=== PATIENT | male | born 1960 | race Caucasian/White ===

== ENCOUNTER 2019-12-13 11:15 | Observation (INO) ==
[2019-12-13 12:10] LABS: Hematocrit 52.1 % (37.5-50.1); Hemoglobin 17.2 g/dL (12.9-16.9); Mean Corpuscular Hemoglobin 31.4 pg (28.0-33.3); Mean Corpuscular Volume 95.1 fL (83.0-100.0); Mean Platelet Volume 10.3 fL (9.4-12.4); Platelet Count 344 K/mcL (140-400); Red Blood Count 5.48 M/mcL (4.19-5.50); Red Cell Distribution Width 13.1 % (11.5-14.5); White Blood Count 7.9 K/mcL (4.3-11.1)
[2019-12-13 12:13] LABS: INR 1.1
[2019-12-13 12:16] LABS: Activated Partial Thrombo Time 41.5 Seconds (26.0-36.0)
[2019-12-13 12:31] LABS: BUN/Creatinine Ratio 14 (6-26); Blood Urea Nitrogen 12 mg/dL (8-23); Calcium 10.5 mg/dL (8.6-10.3); Carbon Dioxide 24 mEq/L (23-29); Chloride 104 mEq/L (98-107); Glucose 107 mg/dL (70-105); Osmolality,Calculated 284 (280-300); Potassium 4.3 mEq/L (3.5-5.1); Sodium 137 mEq/L (136-145); eGFR For African Americans > 60 (> 60); eGFR For Non-African Americans > 60 (> 60)
[2019-12-13 12:32] LABS: Troponin I < 0.03 ng/mL (< 0.04)
[2019-12-13 12:49] LABS: Bilirubin,Urine Negative (Negative); Blood,Urine Negative (Negative); Clarity,Urine Clear (Clear); Color,Urine Yellow (Yellow); Glucose,Urine (UA) Normal (Normal); Ketones,Urine 15 mg/dL (Negative); Leukocyte Esterase,Urine Negative (Negative); Nitrite,Urine Negative (Negative); PH,Urine 7.5 pH Units (5.0-8.0); Protein,Urine 30 mg/dL (Neg-Trace); Specific Gravity,Urine 1.023 (1.010-1.025); Urobilinogen,Urine Normal (Normal)
[2019-12-13 12:53] LABS: Bacteria,Urine None Seen per hpf (None-Few); Hyaline Casts,Urine None Seen per lpf (None-Few); RBC,Urine 0-3 per hpf (0-3); Squamous Epithelial Cell,Urine Few per lpf (None-Few); WBC,Urine 0-3 per hpf (0-3)
[2019-12-13] MEDS ORDERED: Naloxone 0.4 MG/ML INJ IVP PRN (12:57)
[2019-12-13] MEDS ORDERED: Ondansetron 4 MG/2 ML VIAL IVP PRN (12:57)
[2019-12-13 13:09] LABS: Amphetamine Screen,Urine Negative ng/mL (Cutoff=1000); Barbiturate Screen,Urine Negative ng/mL (Cutoff=200); Benzodiazepines Screen,Urine Negative ng/mL (Cutoff=200); Cannabinoid Screen,Urine Positive ng/mL (Cutoff = 50); Cocaine Screen,Urine Negative ng/mL (Cutoff= 300); Opiate Screen,Urine Negative ng/mL (Cutoff=300); Phencyclidine Screen,Urine Negative ng/mL (Cutoff=25)
[2019-12-13] MEDS ORDERED: Aspirin 325 MG TABLET PO ONE (13:26)
[2019-12-13] MEDS ORDERED: 0.9 % Sodium Chloride 1,000 ML IVC SCH (13:30)
[2019-12-13] MEDS ORDERED: Acetaminophen 325 MG TABLET PO PRN (14:43)
[2019-12-13] MEDS ORDERED: Acetaminophen/Butalbital/CaffeineTABLET PO ONE (14:55)
[2019-12-13] MEDS: Nicotine 21 MG PATCH.TD24 TD SCH (17:01)
[2019-12-13] MEDS: Budesonide/Formoterol 160/4.5 1 PUFF INH IH SCH (22:09)
[2019-12-14 06:44] LABS: Basophils # 0.1 K/mcL (0.0-0.2); Basophils % 0.9 %; Eosinophils # 0.3 K/mcL (0.0-0.6); Eosinophils % 3.2 %; Hematocrit 45.8 % (37.5-50.1); Immature Granulocytes % 0.1 % (0-4); Lymphocytes # 1.8 K/mcL (0.6-4.6); Lymphocytes % 22.6 %; Mean Corpuscular HGB Conc 33.6 g/dL (31.6-35.5); Mean Corpuscular Hemoglobin 32.2 pg (28.0-33.3); Mean Corpuscular Volume 95.8 fL (83.0-100.0); Mean Platelet Volume 9.8 fL (9.4-12.4); Monocytes # 0.8 K/mcL (0.0-1.3); Monocytes % 9.8 %; Neutrophils # 5.1 K/mcL (1.6-8.9); Platelet Count 296 K/mcL (140-400); Red Blood Count 4.78 M/mcL (4.19-5.50); Red Cell Distribution Width 13.1 % (11.5-14.5); Segmented Neutrophils % 63.4 %; White Blood Count 8.1 K/mcL (4.3-11.1)
[2019-12-14 06:47] LABS: Hemoglobin 15.4 g/dL (12.9-16.9)
[2019-12-14 06:48] LABS: Estimated Average Glucose 123 mg/dl
[2019-12-14 07:07] LABS: BUN/Creatinine Ratio 15 (6-26); Blood Urea Nitrogen 12 mg/dL (8-23); Calcium 9.2 mg/dL (8.6-10.3); Carbon Dioxide 23 mEq/L (23-29); Chloride 106 mEq/L (98-107); Chol/HDL Ratio 4.8 (0-4.9); Cholesterol 153 mg/dL (< 200); Glucose 97 mg/dL (70-105); HDL Cholesterol 32 mg/dL (40-59); LDL Cholesterol,Calculated 103 mg/dL (0-99); Osmolality,Calculated 282 (280-300); Potassium 3.9 mEq/L (3.5-5.1); Sodium 136 mEq/L (136-145); Triglycerides 92 mg/dL (< 150); eGFR For African Americans > 60 (> 60); eGFR For Non-African Americans > 60 (> 60)
[2019-12-14] MEDS: Budesonide/Formoterol 160/4.5 1 PUFF INH IH SCH ×2 (09:47→20:02)
[2019-12-14] MEDS: Tiotropium 18 MCG inhalation IH SCH (09:48)
[2019-12-14] MEDS: Aspirin Enteric Coated 81 MG Tablet PO SCH (10:03)
[2019-12-14] MEDS: Nicotine 21 MG PATCH.TD24 TD SCH (10:04)
[2019-12-14] MEDS ORDERED: Isovue-370 500 ML BOTTLE IVP ONE (11:58)
[2019-12-15 07:15] VITALS: BP 120/77
[2019-12-15] MEDS: Budesonide/Formoterol 160/4.5 1 PUFF INH IH SCH (07:39)
[2019-12-15] MEDS: Tiotropium 18 MCG inhalation IH SCH (07:39)
[2019-12-15] MEDS: Nicotine 21 MG PATCH.TD24 TD SCH (07:59)
[2019-12-15] MEDS: Aspirin Enteric Coated 81 MG Tablet PO SCH (07:59)
== END 2019-12-15 11:09 | disposition home or self-care (01) ==
LOC: 3BNU 11:15 → EMEROOARM 11:15 → SUATTDRO 13:08 → 3BNU 13:40
PROVIDERS: ADMIT Internal Medicine; ATTEND Student in an Organized Health Care Education/Training Program

== ENCOUNTER 2020-10-24 19:39 | Observation (INO) ==
[2020-10-24] MEDS ORDERED: Isovue-370 500 ML BOTTLE IVP ONE (20:05)
[2020-10-24] MEDS ORDERED: Ipratropium/Albuterol Neb 3 ML IH ONE (20:06)
[2020-10-24] MEDS ORDERED: Morphine Sulfate 2 MG/ML SYRINGE IVP ONE (20:13)
[2020-10-24 20:15] LABS: Basophils # 0.1 K/mcL (0.0-0.2); Basophils % 0.7 %; Eosinophils # 0.2 K/mcL (0.0-0.6); Eosinophils % 1.9 %; Hematocrit 47.2 % (37.5-50.1); Hemoglobin 15.7 g/dL (12.9-16.9); Immature Granulocytes % 0.3 % (0-4); Lymphocytes # 1.9 K/mcL (0.6-4.6); Lymphocytes % 15.9 %; Mean Corpuscular HGB Conc 33.3 g/dL (31.6-35.5); Mean Corpuscular Hemoglobin 32.4 pg (28.0-33.3); Mean Corpuscular Volume 97.3 fL (83.0-100.0); Mean Platelet Volume 9.2 fL (9.4-12.4); Monocytes # 1.7 K/mcL (0.0-1.3); Neutrophils # 7.9 K/mcL (1.6-8.9); Platelet Count 324 K/mcL (140-400); Red Blood Count 4.85 M/mcL (4.19-5.50); Red Cell Distribution Width 12.5 % (11.5-14.5); Segmented Neutrophils % 67.2 %; White Blood Count 11.8 K/mcL (4.3-11.1)
[2020-10-24] MEDS ORDERED: Ondansetron 4 MG/2 ML VIAL IVP ONE (20:17)
[2020-10-24] MEDS ORDERED: cefTRIAXone 1,000 MG in Water for inj. (sterile) 10 ML IVP ONE (20:22)
[2020-10-24] MEDS ORDERED: Azithromycin 500 MG in 0.9 % Sodium Chloride 250 ML IVPB ONE (20:22)
[2020-10-24 20:37] LABS: Alanine Aminotransferase 20 Units/L (7-52); Albumin 4.5 g/dL (3.5-5.7); Albumin/Globulin Ratio 1.4 (1.1-2.2); Alkaline Phosphatase 119 Units/L (34-104); Aspartate Amino Transferase 17 Units/L (13-39); BUN/Creatinine Ratio 9 (6-26); Bilirubin,Total 0.7 mg/dL (0.3-1.0); Blood Urea Nitrogen 9 mg/dL (8-23); Calcium 10.1 mg/dL (8.6-10.3); Carbon Dioxide 21 mEq/L (23-29); Chloride 101 mEq/L (98-107); Globulin 3.2 g/dL (2.4-3.5); Glucose 145 mg/dL (70-105); Osmolality,Calculated 285 (280-300); Potassium 3.8 mEq/L (3.5-5.1); Sodium 137 mEq/L (136-145); Total Protein 7.7 g/dL (6.4-8.9); Troponin I < 0.03 ng/mL (< 0.04); eGFR For African Americans > 60 (> 60); eGFR For Non-African Americans > 60 (> 60)
[2020-10-24] MEDS ORDERED: methylPREDNISolone 125 MG/2 ML VIAL IVP ONE (20:48)
[2020-10-24] MEDS ORDERED: 0.9 % Sodium Chloride 1,000 ML IVC ONE (21:02)
[2020-10-24] MEDS ORDERED: Albuterol 2.5 MG/3 ML NEBULIZER IH PRN (22:42)
[2020-10-24] MEDS ORDERED: Nicotine 21 MG PATCH.TD24 TD SCH (22:45)
[2020-10-24] MEDS ORDERED: Ondansetron 4 MG/2 ML VIAL IVP PRN (22:46)
[2020-10-24] MEDS ORDERED: Naloxone 0.4 MG/ML INJ IVP PRN (22:46)
[2020-10-24] MEDS: Ibuprofen 400 MG TABLET PO PRN (23:42)
[2020-10-25 00:21] LABS: Basophils % 0.2 %; Eosinophils % 0.1 %; Hemoglobin 14.3 g/dL (12.9-16.9); Immature Granulocytes % 0.3 % (0-4); Lymphocytes # 0.3 K/mcL (0.6-4.6); Mean Corpuscular HGB Conc 33.3 g/dL (31.6-35.5); Mean Corpuscular Hemoglobin 32.6 pg (28.0-33.3); Mean Corpuscular Volume 97.9 fL (83.0-100.0); Mean Platelet Volume 9.1 fL (9.4-12.4); Monocytes # 0.2 K/mcL (0.0-1.3); Monocytes % 1.9 %; Neutrophils # 8.9 K/mcL (1.6-8.9); Platelet Count 260 K/mcL (140-400); Red Blood Count 4.39 M/mcL (4.19-5.50); Red Cell Distribution Width 12.4 % (11.5-14.5); Segmented Neutrophils % 94.5 %; White Blood Count 9.4 K/mcL (4.3-11.1)
[2020-10-25 00:40] LABS: Alanine Aminotransferase 17 Units/L (7-52); Albumin 4.1 g/dL (3.5-5.7); Albumin/Globulin Ratio 1.4 (1.1-2.2); Alkaline Phosphatase 97 Units/L (34-104); Aspartate Amino Transferase 15 Units/L (13-39); BUN/Creatinine Ratio 13 (6-26); Bilirubin,Total 0.5 mg/dL (0.3-1.0); Blood Urea Nitrogen 9 mg/dL (8-23); Calcium 9.2 mg/dL (8.6-10.3); Carbon Dioxide 21 mEq/L (23-29); Chloride 103 mEq/L (98-107); Globulin 2.9 g/dL (2.4-3.5); Glucose 134 mg/dL (70-105); Osmolality,Calculated 283 (280-300); Potassium 4.1 mEq/L (3.5-5.1); Sodium 136 mEq/L (136-145); eGFR For African Americans > 60 (> 60); eGFR For Non-African Americans > 60 (> 60)
[2020-10-25 00:47] LABS: Bilirubin,Urine Negative (Negative); Blood,Urine Trace (Negative); Clarity,Urine Clear (Clear); Color,Urine Colorless (Yellow); Glucose,Urine (UA) Normal (Normal); Ketones,Urine 40 mg/dL (Negative); Leukocyte Esterase,Urine Negative (Negative); Mucus,Urine Few per lpf (None-Few); Nitrite,Urine Negative (Negative); PH,Urine 6.5 pH Units (5.0-8.0); Protein,Urine 30 mg/dL (Neg-Trace); RBC,Urine 0-3 per hpf (0-3); Specific Gravity,Urine > 1.030 (1.010-1.025); Squamous Epithelial Cell,Urine Few per hpf (None-Few); Urobilinogen,Urine Normal (Normal); WBC,Urine 0-3 per hpf (0-3)
[2020-10-25 01:20] LABS: Influenza A PCR Negative (Negative); Influenza B PCR Negative (Negative); Resp. Syncytial Virus PCR Negative (Negative)
[2020-10-25 01:21] LABS: SARS-CoV-2 by PCR (In House) Negative (Negative)
[2020-10-25] MEDS ORDERED: *HR* OxyCODONE Immed Rel 5 MG TABLET PO PRN (01:42)
[2020-10-25] MEDS ORDERED: *HR* HYDROcodone/Acet 5/325 mg TABLET PO PRN (01:42)
[2020-10-25] MEDS ORDERED: predniSONE 20 MG TABLET PO SCH (09:00)
[2020-10-25] MEDS ORDERED: Aspirin Enteric Coated 81 MG Tablet PO SCH (09:00)
[2020-10-25] MEDS ORDERED: Azithromycin 250 MG TABLET PO SCH (09:00)
[2020-10-25 10:44] VITALS: BP 113/67
[2020-10-25] MEDS: Ibuprofen 400 MG TABLET PO PRN (13:58)
== END 2020-10-25 14:09 | disposition home or self-care (01) ==
LOC: 3BNU 19:39 → EMEROOARM 19:39 → SUATTDRO 22:36 → 3BNU 23:01
PROVIDERS: ADMIT Internal Medicine; ATTEND General Practice

== ENCOUNTER 2021-09-25 20:44 | Inpatient (IN) ==
[2021-09-25] MEDS ORDERED: Ipratropium/Albuterol Neb 3 ML IH ONE (20:54)
[2021-09-25] MEDS ORDERED: methylPREDNISolone 125 MG/2 ML VIAL IVP ONE (20:57)
[2021-09-25 21:19] LABS: Basophils % 0.3 %; Eosinophils # 0.1 K/mcL (0.0-0.6); Eosinophils % 1.5 %; Hematocrit 44.6 % (37.5-50.1); Hemoglobin 14.3 g/dL (12.9-16.9); Immature Granulocytes % 1.5 % (0-4); Lymphocytes % 10.6 %; Mean Corpuscular HGB Conc 32.1 g/dL (31.6-35.5); Mean Corpuscular Hemoglobin 32.8 pg (28.0-33.3); Mean Corpuscular Volume 102.3 fL (83.0-100.0); Monocytes # 0.7 K/mcL (0.0-1.3); Monocytes % 7.6 %; Neutrophils # 7.5 K/mcL (1.6-8.9); Platelet Count 213 K/mcL (140-400); Red Blood Count 4.36 M/mcL (4.19-5.50); Red Cell Distribution Width 18.9 % (11.5-14.5); Segmented Neutrophils % 78.5 %; White Blood Count 9.6 K/mcL (4.3-11.1)
[2021-09-25 21:22] LABS: VBG HCO3 35 mEq/L (21-27); VBG PCO2 67 mmHg (41-51); VBG PH 7.33 pH Units (7.32-7.42); VBG PO2 36 mmHg (25-50)
[2021-09-25 21:26] LABS: INR 1.1; Prothrombin Time 11.8 Seconds (9.4-12.1)
[2021-09-25 21:29] LABS: Activated Partial Thrombo Time 34.6 Seconds (26.0-36.0)
[2021-09-25 21:36] LABS: Alanine Aminotransferase 41 Units/L (7-52); Albumin 3.4 g/dL (3.5-5.7); Albumin/Globulin Ratio 1.3 (1.1-2.2); Alkaline Phosphatase 125 Units/L (34-104); Aspartate Amino Transferase 20 Units/L (13-39); BUN/Creatinine Ratio 23 (6-26); Bilirubin,Direct 0.1 mg/dL (0.0-0.2); Bilirubin,Indirect 0.5 mg/dL (0.0-1.0); Bilirubin,Total 0.6 mg/dL (0.3-1.0); Blood Urea Nitrogen 15 mg/dL (8-23); Calcium 8.7 mg/dL (8.6-10.3); Carbon Dioxide 32 mEq/L (23-29); Chloride 94 mEq/L (98-107); Globulin 2.6 g/dL (2.4-3.5); Glucose 120 mg/dL (70-105); Magnesium 1.7 mg/dL (1.6-2.6); Osmolality,Calculated 278 (280-300); Potassium 3.6 mEq/L (3.5-5.1); Sodium 133 mEq/L (136-145); Troponin I < 0.03 ng/mL (< 0.04); eGFR For African Americans > 60 (> 60); eGFR For Non-African Americans > 60 (> 60)
[2021-09-25 21:49] LABS: Thyroid Stimulating Hormone 1.283 mcIU/mL (0.340-5.600)
[2021-09-25 21:52] LABS: Influenza A PCR Negative (Negative); Influenza B PCR Negative (Negative); Resp. Syncytial Virus PCR Negative (Negative)
[2021-09-25 21:59] LABS: SARS-CoV-2 by PCR (In House) Negative (Negative)
[2021-09-25 22:02] LABS: Bilirubin,Urine Negative (Negative); Blood,Urine Negative (Negative); Clarity,Urine Clear (Clear); Color,Urine Yellow (Yellow); Glucose,Urine (UA) Normal (Normal); Ketones,Urine Negative (Negative); Leukocyte Esterase,Urine Negative (Negative); Nitrite,Urine Negative (Negative); PH,Urine 6.5 pH Units (5.0-8.0); Protein,Urine 30 mg/dL (Neg-Trace); Specific Gravity,Urine >= 1.030 (1.010-1.025); Urobilinogen,Urine Normal (Normal)
[2021-09-25 22:06] LABS: Mucus,Urine Few per lpf (None-Few); RBC,Urine 0-3 per hpf (0-3); WBC,Urine 0-3 per hpf (0-3)
[2021-09-25] MEDS ORDERED: cefTRIAXone 1,000 MG in Water for inj. (sterile) 10 ML IVP ONE (23:40)
[2021-09-25] MEDS ORDERED: Azithromycin 250 MG TABLET PO ONE (23:40)
[2021-09-26] MEDS ORDERED: methylPREDNISolone 125 MG/2 ML VIAL IVP ONE (02:17)
[2021-09-26] MEDS ORDERED: *HR* Promethazine 25 MG/ML VIAL IM PRN ×2 (02:35→03:46)
[2021-09-26] MEDS ORDERED: Melatonin 3 MG TABLET PO PRN (02:35)
[2021-09-26] MEDS ORDERED: Acetaminophen 325 MG TABLET PO PRN (02:35)
[2021-09-26] MEDS ORDERED: Naloxone 0.4 MG/ML INJ IVP PRN (02:35)
[2021-09-26] MEDS ORDERED: Saline Nasal Spray 44 ML BOTTLE NS PRN (02:40)
[2021-09-26] MEDS ORDERED: Saliva Stimulant 44.3ml BOTTLE PO PRN (02:40)
[2021-09-26] MEDS ORDERED: Nicotine 2 MG GUM BC PRN (02:40)
[2021-09-26] MEDS ORDERED: *HR* LORazepam 0.5 MG TABLET PO PRN (02:42)
[2021-09-26] MEDS ORDERED: D5% in Water 1,000 ML IVC PRN (02:44)
[2021-09-26] MEDS ORDERED: *HR* Dextrose 50 % in Water (Syg) 50 ML SYRINGE IVP PRN (02:44)
[2021-09-26] MEDS ORDERED: Dextrose Gel 15 GM/37.5 ML TUBE PO PRN ×2 (02:44)
[2021-09-26] MEDS ORDERED: Morphine Sulfate 2 MG/ML SYRINGE IVP ONE (02:44)
[2021-09-26] MEDS: Ipratropium/Albuterol Neb 3 ML IH SCH ×5 (03:44→20:11)
[2021-09-26] MEDS ORDERED: Perflutren Lipid Microsphere 1.3 ML in 0.9 % Sodium Chloride 8.7 ML IVP PRN (03:45)
[2021-09-26 04:24] LABS: Hematocrit 43.9 % (37.5-50.1); Hemoglobin 14.3 g/dL (12.9-16.9); Mean Corpuscular HGB Conc 32.6 g/dL (31.6-35.5); Mean Corpuscular Volume 101.4 fL (83.0-100.0); Platelet Count 221 K/mcL (140-400); Red Blood Count 4.33 M/mcL (4.19-5.50); Red Cell Distribution Width 18.9 % (11.5-14.5); White Blood Count 7.3 K/mcL (4.3-11.1)
[2021-09-26 04:29] LABS: VBG HCO3 30 mEq/L (21-27); VBG PCO2 53 mmHg (41-51); VBG PH 7.36 pH Units (7.32-7.42); VBG PO2 57 mmHg (25-50)
[2021-09-26 04:42] LABS: INR 1.1; Prothrombin Time 11.7 Seconds (9.4-12.1)
[2021-09-26 04:47] LABS: BUN/Creatinine Ratio 22 (6-26); Blood Urea Nitrogen 15 mg/dL (8-23); Calcium 9.1 mg/dL (8.6-10.3); Carbon Dioxide 30 mEq/L (23-29); Chloride 96 mEq/L (98-107); Glucose 187 mg/dL (70-105); Magnesium 1.9 mg/dL (1.6-2.6); Osmolality,Calculated 284 (280-300); Phosphorous 4.2 mg/dL (2.7-4.5); Potassium 4.5 mEq/L (3.5-5.1); Sodium 134 mEq/L (136-145); eGFR For African Americans > 60 (> 60); eGFR For Non-African Americans > 60 (> 60)
[2021-09-26] MEDS: *HR* Enoxaparin 40 MG/0.4 ML SYRINGE SQ SCH (06:20)
[2021-09-26] MEDS: MethylPREDNISolone 40 MG/ML VIAL IVP SCH ×3 (06:20→21:46)
[2021-09-26] MEDS: *HR* HYDROcodone/Acet 5/325 mg TABLET PO PRN ×2 (06:23→21:55)
[2021-09-26 06:42] LABS: Adenovirus Not Detected (Not Detect); Bordetella Pertussis Not Detected (Not Detect); Chlamydophila pneumoniae Not Detected (Not Detect); Coronavirus 229E Not Detected (Not Detect); Coronavirus HKU1 Not Detected (Not Detect); Coronavirus NL63 Not Detected (Not Detect); Coronavirus OC43 Not Detected (Not Detect); Human Metapneumovirus Not Detected (Not Detect); Human Rhinovirus/Enterovirus Not Detected (Not Detect); Influenza A Subtype 2009 H1 Not Detected (Not Detect); Influenza B Not Detected (Not Detect); Mycoplasma pneumoniae Not Detected (Not Detect); Parainfluenza Virus 1 Not Detected (Not Detect); Parainfluenza Virus 2 Not Detected (Not Detect); Parainfluenza Virus 3 Not Detected (Not Detect); Parainfluenza Virus 4 Not Detected (Not Detect); Respiratory Syncytial Virus Not Detected (Not Detect); SARS-CoV-2 Not Detected (Not Detect)
[2021-09-26] MEDS: Budesonide/Formoterol 160/4.5 1 PUFF INH IH SCH ×2 (08:37→20:11)
[2021-09-26] MEDS: Lactobacillus 1 EACH CAP.SPRINK PO SCH ×2 (09:32→21:46)
[2021-09-26] MEDS: Chlorhexidine Rinse 15 ML MOUTHWASH MM SCH ×2 (09:32→21:46)
[2021-09-26] MEDS: Azithromycin 250 MG TABLET PO SCH (09:32)
[2021-09-26] MEDS: Aspirin 81 MG TAB.CHEW PO SCH (09:32)
[2021-09-26] MEDS: Nicotine 21 MG PATCH.TD24 TD SCH (09:33)
[2021-09-26] MEDS: Artificial Tears SOLN 15 ML BOTTLE BOTH EYES SCH ×4 (09:42→21:47)
[2021-09-26] MEDS: *HR* OxyCODONE Immed Rel 5 MG TABLET PO PRN ×2 (10:52→16:41)
[2021-09-26] MEDS ORDERED: Isovue-370 500 ML BOTTLE IVP ONE (11:55)
[2021-09-26] MEDS ORDERED: Furosemide 20 MG/2 ML VIAL IVP ONE (16:26)
[2021-09-27] MEDS: Ipratropium/Albuterol Neb 3 ML IH SCH ×7 (00:14→23:20)
[2021-09-27] MEDS: *HR* HYDROcodone/Acet 5/325 mg TABLET PO PRN ×3 (03:50→19:55)
[2021-09-27] MEDS: *HR* Enoxaparin 40 MG/0.4 ML SYRINGE SQ SCH (06:12)
[2021-09-27] MEDS: MethylPREDNISolone 40 MG/ML VIAL IVP SCH (06:12)
[2021-09-27] MEDS: Budesonide/Formoterol 160/4.5 1 PUFF INH IH SCH ×2 (07:21→20:02)
[2021-09-27] MEDS: Chlorhexidine Rinse 15 ML MOUTHWASH MM SCH ×2 (09:29→21:35)
[2021-09-27] MEDS: Aspirin 81 MG TAB.CHEW PO SCH (09:29)
[2021-09-27] MEDS: Lactobacillus 1 EACH CAP.SPRINK PO SCH ×2 (09:29→21:35)
[2021-09-27] MEDS: Nicotine 21 MG PATCH.TD24 TD SCH (09:29)
[2021-09-27] MEDS: predniSONE 20 MG TABLET PO SCH (09:29)
[2021-09-27] MEDS: Azithromycin 250 MG TABLET PO SCH (09:29)
[2021-09-27] MEDS: Artificial Tears SOLN 15 ML BOTTLE BOTH EYES SCH ×4 (09:29→21:35)
[2021-09-27] MEDS: *HR* OxyCODONE Immed Rel 5 MG TABLET PO PRN (14:30)
[2021-09-27] MEDS ORDERED: Furosemide 40 MG/4 ML VIAL IVP ONE (16:47)
[2021-09-28] MEDS ORDERED: Prochlorperazine 10 MG/2 ML VIAL IVP PRN (00:16)
[2021-09-28] MEDS: *HR* OxyCODONE Immed Rel 5 MG TABLET PO PRN ×2 (00:17→07:59)
[2021-09-28] MEDS: Ipratropium/Albuterol Neb 3 ML IH SCH ×3 (03:38→11:31)
[2021-09-28] MEDS: *HR* Enoxaparin 40 MG/0.4 ML SYRINGE SQ SCH (04:59)
[2021-09-28] MEDS: *HR* HYDROcodone/Acet 5/325 mg TABLET PO PRN (04:59)
[2021-09-28 05:08] LABS: Hematocrit 40.3 % (37.5-50.1); Mean Corpuscular HGB Conc 32.3 g/dL (31.6-35.5); Mean Corpuscular Hemoglobin 33.5 pg (28.0-33.3); Mean Corpuscular Volume 103.9 fL (83.0-100.0); Mean Platelet Volume 9.5 fL (9.4-12.4); Platelet Count 295 K/mcL (140-400); Red Blood Count 3.88 M/mcL (4.19-5.50); White Blood Count 12.5 K/mcL (4.3-11.1)
[2021-09-28 05:10] LABS: VBG HCO3 34 mEq/L (21-27); VBG PCO2 60 mmHg (41-51); VBG PH 7.36 pH Units (7.32-7.42); VBG PO2 35 mmHg (25-50)
[2021-09-28 05:25] LABS: BUN/Creatinine Ratio 27 (6-26); Blood Urea Nitrogen 20 mg/dL (8-23); Calcium 9.3 mg/dL (8.6-10.3); Carbon Dioxide 34 mEq/L (23-29); Chloride 97 mEq/L (98-107); Glucose 100 mg/dL (70-105); Magnesium 2.1 mg/dL (1.6-2.6); Osmolality,Calculated 287 (280-300); Potassium 4.2 mEq/L (3.5-5.1); Sodium 137 mEq/L (136-145); eGFR For African Americans > 60 (> 60); eGFR For Non-African Americans > 60 (> 60)
[2021-09-28] MEDS ORDERED: Acetaminophen IV 1,000 MG/100 ML BAG IVPB ONE (05:44)
[2021-09-28] MEDS: Artificial Tears SOLN 15 ML BOTTLE BOTH EYES SCH ×2 (07:05→11:29)
[2021-09-28] MEDS: Budesonide/Formoterol 160/4.5 1 PUFF INH IH SCH (07:30)
[2021-09-28] MEDS: Nicotine 21 MG PATCH.TD24 TD SCH (07:49)
[2021-09-28] MEDS: Chlorhexidine Rinse 15 ML MOUTHWASH MM SCH (07:50)
[2021-09-28] MEDS: Lactobacillus 1 EACH CAP.SPRINK PO SCH (07:50)
[2021-09-28] MEDS: Azithromycin 250 MG TABLET PO SCH (07:50)
[2021-09-28] MEDS: Aspirin 81 MG TAB.CHEW PO SCH (07:50)
[2021-09-28] MEDS: predniSONE 20 MG TABLET PO SCH (07:50)
[2021-09-28 10:59] VITALS: BP 147/77; PULSE 130; TEMP 98
[2021-09-28 12:42] VITALS: O2SAT 94
== END 2021-09-28 14:33 | disposition home health service (06) | DRG 189 ==
LOC: EMEROOARM 20:44 → 2ANU 20:44 → SUATTDRO 09-26 00:17 → 2ANU 09-26 03:30
PROVIDERS: ADMIT Family Medicine; ATTEND Internal Medicine

== ENCOUNTER 2021-10-06 12:40 | Observation (INO) ==
[2021-10-06] MEDS ORDERED: Ipratropium/Albuterol Neb 3 ML IH ONE (13:17)
[2021-10-06 13:38] LABS: Hematocrit 43.4 % (37.5-50.1); Hemoglobin 14.2 g/dL (12.9-16.9); Mean Corpuscular HGB Conc 32.7 g/dL (31.6-35.5); Mean Corpuscular Hemoglobin 33.5 pg (28.0-33.3); Mean Corpuscular Volume 102.4 fL (83.0-100.0); Mean Platelet Volume 9.6 fL (9.4-12.4); Platelet Count 263 K/mcL (140-400); Red Blood Count 4.24 M/mcL (4.19-5.50); Red Cell Distribution Width 17.6 % (11.5-14.5); White Blood Count 7.5 K/mcL (4.3-11.1)
[2021-10-06 13:47] LABS: ABG Base Excess 3 mEq/L (-2 to 3); ABG HCO3 30 mEq/L (21-27); ABG Oxygen Saturation 93 % (95-98); ABG PCO2 57 mmHg (35-45); ABG PH 7.34 pH Units (7.32-7.45); ABG PO2 74 mmHg (85-104); ABG TCO2 32 mEq/L (20-26); Blood Gas Pressure Support 12 cm H2O
[2021-10-06 13:50] LABS: INR 1.1; Prothrombin Time 12.2 Seconds (9.4-12.1)
[2021-10-06 13:58] LABS: BUN/Creatinine Ratio 20 (6-26); Blood Urea Nitrogen 12 mg/dL (8-23); Calcium 8.7 mg/dL (8.6-10.3); Carbon Dioxide 25 mEq/L (23-29); Chloride 100 mEq/L (98-107); Glucose 148 mg/dL (70-105); Osmolality,Calculated 281 (280-300); Potassium 4.7 mEq/L (3.5-5.1); Sodium 134 mEq/L (136-145); Troponin I < 0.03 ng/mL (< 0.04); eGFR For African Americans > 60 (> 60); eGFR For Non-African Americans > 60 (> 60)
[2021-10-06] MEDS ORDERED: Isovue-370 500 ML BOTTLE IVP ONE (13:58)
[2021-10-06] MEDS ORDERED: Ondansetron 4 MG/2 ML VIAL IVP ONE (14:33)
[2021-10-06] MEDS ORDERED: Morphine Sulfate 2 MG/ML SYRINGE IVP ONE (14:33)
[2021-10-06 14:37] LABS: Lymphocytes # 0.3 K/mcL (0.6-4.6); Monocytes # 0.1 K/mcL (0.0-1.3); Neutrophils # 6.9 K/mcL (1.6-8.9); Platelet Estimate Normal (Normal)
[2021-10-06] MEDS ORDERED: methylPREDNISolone 125 MG/2 ML VIAL IVP ONE (14:55)
[2021-10-06] MEDS ORDERED: 0.9 % Sodium Chloride 1,000 ML IV ONE (14:59)
[2021-10-06] MEDS ORDERED: Ondansetron 4 MG/2 ML VIAL IVP PRN (15:45)
[2021-10-06] MEDS ORDERED: Naloxone 0.4 MG/ML INJ IVP PRN (15:45)
[2021-10-06] MEDS ORDERED: *HR* HYDROcodone/Acet 5/325 mg TABLET PO PRN (15:45)
[2021-10-06] MEDS ORDERED: Acetaminophen 325 MG TABLET PO PRN (15:45)
[2021-10-06] MEDS ORDERED: Ipratropium/Albuterol Neb 3 ML IH PRN (15:47)
[2021-10-06] MEDS ORDERED: *HR* LORazepam 2 MG/ML VIAL IVP PRN (15:47)
[2021-10-06] MEDS: Ipratropium/Albuterol Neb 3 ML IH SCH ×2 (16:46→20:17)
[2021-10-06 17:05] LABS: Adenovirus Not Detected (Not Detect); Bordetella Pertussis Not Detected (Not Detect); Chlamydophila pneumoniae Not Detected (Not Detect); Coronavirus 229E Not Detected (Not Detect); Coronavirus HKU1 Not Detected (Not Detect); Coronavirus NL63 Not Detected (Not Detect); Coronavirus OC43 Not Detected (Not Detect); Human Metapneumovirus Not Detected (Not Detect); Human Rhinovirus/Enterovirus Not Detected (Not Detect); Influenza A Subtype 2009 H1 Not Detected (Not Detect); Influenza B Not Detected (Not Detect); Mycoplasma pneumoniae Not Detected (Not Detect); Parainfluenza Virus 1 Not Detected (Not Detect); Parainfluenza Virus 2 Not Detected (Not Detect); Parainfluenza Virus 3 Not Detected (Not Detect); Parainfluenza Virus 4 Not Detected (Not Detect); Respiratory Syncytial Virus Not Detected (Not Detect); SARS-CoV-2 Not Detected (Not Detect)
[2021-10-06] MEDS: *HR* OxyCODONE Immed Rel 5 MG TABLET PO PRN (18:13)
[2021-10-06] MEDS: Nicotine 14 MG PATCH.TD24 TD SCH (18:15)
[2021-10-07 01:52] LABS: Basophils % 0.1 %; Hematocrit 40.5 % (37.5-50.1); Hemoglobin 13.3 g/dL (12.9-16.9); Immature Granulocytes % 0.7 % (0-4); Lymphocytes # 0.2 K/mcL (0.6-4.6); Lymphocytes % 2.8 %; Mean Corpuscular HGB Conc 32.8 g/dL (31.6-35.5); Mean Corpuscular Hemoglobin 33.6 pg (28.0-33.3); Mean Corpuscular Volume 102.3 fL (83.0-100.0); Mean Platelet Volume 9.6 fL (9.4-12.4); Monocytes # 0.2 K/mcL (0.0-1.3); Neutrophils # 8.1 K/mcL (1.6-8.9); Platelet Count 212 K/mcL (140-400); Red Blood Count 3.96 M/mcL (4.19-5.50); Red Cell Distribution Width 17.3 % (11.5-14.5); Segmented Neutrophils % 94.4 %; White Blood Count 8.5 K/mcL (4.3-11.1)
[2021-10-07 02:09] LABS: BUN/Creatinine Ratio 23 (6-26); Blood Urea Nitrogen 13 mg/dL (8-23); Carbon Dioxide 29 mEq/L (23-29); Chloride 99 mEq/L (98-107); Glucose 167 mg/dL (70-105); Osmolality,Calculated 286 (280-300); Potassium 4.6 mEq/L (3.5-5.1); Sodium 136 mEq/L (136-145); eGFR For African Americans > 60 (> 60); eGFR For Non-African Americans > 60 (> 60)
[2021-10-07] MEDS: *HR* OxyCODONE Immed Rel 5 MG TABLET PO PRN ×3 (02:27→20:31)
[2021-10-07] MEDS: Ipratropium/Albuterol Neb 3 ML IH SCH ×4 (03:49→19:24)
[2021-10-07] MEDS: *HR* Enoxaparin 40 MG/0.4 ML SYRINGE SQ SCH (06:12)
[2021-10-07] MEDS: Budesonide/Formoterol 160/4.5 1 PUFF INH IH SCH ×3 (08:22→19:24)
[2021-10-07] MEDS: Tiotropium 10 INH DOSE IH SCH (08:26)
[2021-10-07] MEDS: predniSONE 20 MG TABLET PO SCH (09:00)
[2021-10-07] MEDS: Nicotine 14 MG PATCH.TD24 TD SCH (09:01)
[2021-10-07] MEDS ORDERED: Furosemide 40 MG/4 ML VIAL IVP ONE (10:21)
[2021-10-07 23:03] VITALS: TEMP 97.8
[2021-10-08] MEDS: Ipratropium/Albuterol Neb 3 ML IH SCH ×2 (03:06→10:16)
[2021-10-08] MEDS: *HR* OxyCODONE Immed Rel 5 MG TABLET PO PRN (04:09)
[2021-10-08] MEDS: *HR* Enoxaparin 40 MG/0.4 ML SYRINGE SQ SCH (04:10)
[2021-10-08 06:54] VITALS: BP 119/74; PULSE 107; O2SAT 97
[2021-10-08] MEDS ORDERED: Metoprolol XL (24 HR) Succ 25 MG TAB.ER.24H PO ONE ×3 (08:40→14:00)
[2021-10-08] MEDS: predniSONE 20 MG TABLET PO SCH (09:46)
[2021-10-08] MEDS: Tiotropium 10 INH DOSE IH SCH (10:16)
[2021-10-08] MEDS: Budesonide/Formoterol 160/4.5 1 PUFF INH IH SCH (10:17)
[2021-10-08] MEDS ORDERED: Magic Mouthwash 10 ML UD Cup PO SCH (11:30)
== END 2021-10-08 11:00 | disposition home or self-care (01) ==
LOC: 3NENU 12:40 → EMEROOARM 12:40 → SUATTDRO 16:01 → 3NENU 18:00
PROVIDERS: ADMIT Internal Medicine; ATTEND Internal Medicine

== ENCOUNTER 2021-10-27 01:09 | Inpatient (IN) ==
[2021-10-27] MEDS ORDERED: *HR* HYDROmorphone (PF) 1 MG/ML SYRINGE IVP ONE (01:28)
[2021-10-27] MEDS ORDERED: *HR* LORazepam 2 MG/ML VIAL IVP ONE (01:28)
[2021-10-27] MEDS: *HR* LORazepam 2 MG/ML VIAL IVP PRN ×8 (03:07→20:28)
[2021-10-27] MEDS: *HR* HYDROmorphone (PF) 1 MG/ML SYRINGE IVP PRN ×8 (03:07→20:28)
[2021-10-27] MEDS ORDERED: Naloxone 0.4 MG/ML INJ IVP PRN (08:13)
[2021-10-27] MEDS: FentaNYL (PF) 1,000 MCG/100 ML IV.SOLN IVC SCH ×2 (11:45→20:51)
[2021-10-27] MEDS: Atropine 1% Opth Drops 100 DROP/5 ML BOTTLE SL PRN (14:02)
[2021-10-27 16:09] VITALS: TEMP 99.8; O2SAT 93
[2021-10-28] MEDS: Atropine 1% Opth Drops 100 DROP/5 ML BOTTLE SL PRN ×3 (00:20→09:08)
[2021-10-28] MEDS: *HR* LORazepam 2 MG/ML VIAL IVP PRN ×8 (01:25→22:15)
[2021-10-28] MEDS: FentaNYL (PF) 1,000 MCG/100 ML IV.SOLN IVC SCH ×4 (03:00→19:37)
[2021-10-28 04:34] VITALS: BP 128/79; PULSE 144
[2021-10-28] MEDS: *HR* HYDROmorphone (PF) 1 MG/ML SYRINGE IVP PRN ×4 (11:13→18:28)
[2021-10-28] MEDS ORDERED: Scopolamine Patch 1.5 MG PATCH.TD72 TD SCH (15:00)
== END 2021-10-28 23:45 | disposition expired | DRG 951 ==
LOC: CDU 01:09 → EMEROOARM 01:09 → 2ANU 14:36
PROVIDERS: ADMIT Internal Medicine; ATTEND Internal Medicine